=== PATIENT | male | born 1945 | race Caucasian/White ===

== ENCOUNTER 2021-01-23 11:04 | Emergency (ER) | payer MEDICARE ==
[2021-01-23] MEDS ORDERED: Lidocaine 1% with EPINEPHrine 1:100,000 10 ML MDV INJECT ONE (11:23)
--- NOTE | 2021-01-23 11:31 | EDM.PDOC ---
ED HPI GENERAL MEDICAL PROBLEM - General Chief Complaint: Laceration Stated Complaint: [facility] Time Seen by Provider: 01/23/21 11:16 Source of Information: Reports: Patient, RN Notes Reviewed History Limitations: Reports: No Limitations - History of Present Illness INITIAL COMMENTS - FREE TEXT/NARRATIVE: Patient is a 75-year-old male who presents to the ER for the evaluation of his head laceration. Patient was brought in by [facility]. Patient states that he has a history of Parkinson's, and ended up tripping over his own shoe at home, and he ended up falling onto the ground striking his forehead. This did result in about a 7 cm laceration that runs in a vertical fashion just to the right of the midline on the forehead. There is also a small 2 cm linear laceration to the left lateral eyebrow. He did not lose consciousness, he is not having any headache or tenderness around the area, he has had no blurred vision or double vision, no neurological deficits other than the visible Parkinson's. He presented to the [facility], but they did not have head CT purposes so they deferred him here for further management. Patient denies any sort of fevers or chills, cough or shortness of breath, nausea/vomiting/diarrhea. Patient is not on any medications, and he is not on any blood thinners. Forehead Pain Score (Numeric/FACES): 1 - Related Data Allergies Allergy/AdvReac Type Severity Reaction Status Date / Time Penicillins Allergy Severe Cannot Verified 01/23/21 11:14 Remember Home Meds: Home Meds . [No Known Home Meds] 01/23/21 [History] Past Medical History Neurological History: Reports: Parkinson's - Past Surgical History HEENT Surgical History: Reports: Tonsillectomy GI Surgical History: Reports: Colostomy, Other (See Below) Other GI Surgeries/Procedures: Right sided colorectal surgery Social & Family History - Tobacco Use Tobacco Use Status *Q: Never Tobacco User - Caffeine Use Caffeine Use: Reports: None - Recreational Drug Use Recreational Drug Use: No ED ROS GENERAL - Review of Systems Review Of Systems: Comprehensive ROS is negative, except as noted in HPI. ED EXAM, SKIN/RASH Exam: See Below Exam Limited By: No Limitations General Appearance: Alert, WD/WN, No Apparent Distress Eye Exam: Bilateral Eye: EOMI, Normal Inspection, PERRL Head: Normocephalic Neck: Normal Inspection, Supple, Non-Tender Respiratory/Chest: No Respiratory Distress, Lungs Clear, Normal Breath Sounds, No Accessory Muscle Use, Chest Non-Tender Cardiovascular: Normal Peripheral Pulses, Regular Rate, Rhythm, No Edema Peripheral Pulses: 2+: Radial (L), Radial (R) Neurological: Alert, Oriented, Normal Cognition, No Motor/Sensory Deficits Psychiatric: Normal Affect, Normal Mood Skin: Warm, Dry, Normal Color, No Rash, Wound/Incision (7cm linear deep laceration to the patient's forehead, just right of the midline-runs in vertical fashion; wound #2 on left lateral eyebrow 2 cm linear laceration) ED SKIN PROCEDURES - Laceration/Wound Repair Right Upper Midline Face Appearance: Subcutaneous, Linear, Clean Distal NVT: Neuro & Vascular Intact, No Tendon Injury Anesthetic Type: Local Local Anesthesia - Lidocaine (Xylocaine): 1% with EPI Local Anesthetic Volume: Other (6) Skin Prep: Chlorhexidine (Hibiciens), Saline Exploration/Debridement/Repair: Wound Explored, In a Bloodless Field, Explored to Base, No Foreign Material Found Closed with: Sutures Lac/Wound length In cm: 7 Suture Size: 4-0 # of Sutures: 13 Suture Type: Prolene, Interrupted, Simple Suture Size: 4-0 # of Sutures: 3 Repaired with: Vicryl Sterile Dressing Applied: Nurse Tetanus Status Addressed: Yes Complications: No Left Lateral Face Appearance: Superficial, Clean Distal NVT: Neuro & Vascular Intact Anesthetic Type: Local Local Anesthesia - Lidocaine (Xylocaine): 1% with EPI Local Anesthetic Volume: 2cc Skin Prep: Chlorhexidine (Hibiciens), Saline Exploration/Debridement/Repair: Wound Explored, In a Bloodless Field, Explored to Base, No Foreign Material Found Closed with: Sutures Lac/Wound length In cm: 2 Suture Size: 4-0 # of Sutures: 3 Suture Type: Prolene, Interrupted, Simple Sterile Dressing Applied: Nurse Tetanus Status Addressed: Yes Complications: No Course - Vital Signs Last Recorded V/S: Last Vital Signs Temp 98.1 F 01/23/21 11:10 Pulse 83 01/23/21 11:10 Resp 18 01/23/21 11:10 BP 139/117 H 01/23/21 11:10 Pulse Ox 98 01/23/21 11:10 - Orders/Labs/Meds Meds: Medications Discontinued Medications Generic Name Dose Route Start Last Admin Trade Name Betty PRN Reason Stop Dose Admin Lidocaine/Epinephrine 20 ml 01/23/21 11:23 01/23/21 11:32 Lidocaine 1% With Epinephrine 1:100,000 10 Ml Mdv INJECT 01/23/21 11:24 20 ml ONETIME ONE Administration - Re-Assessments/Exams Free Text/Narrative Re-Assessment/Exam: 01/23/21 11:40 Patient presents to the ER via [facility] for the evaluation of his head laceration, due to the extensive nature laceration, they did send him to the ER for head CT. This is been performed, and reviewed by myself and Dr. Kulkarni demonstrates no acute bleeds or other obvious fractures or abnormalities. The wound is deep enough, that it does look like it goes down to the skull however the patient's facial muscle function/sensation seems to be intact. 01/23/21 11:45 Official radiology read does demonstrate soft tissue injuries within the frontal scalp slightly to the right side with mild generalized atrophy but no other acute intracranial processes noted. Departure - Departure Time of Disposition: 11:31 Disposition: Home, Self-Care 01 Condition: Good Clinical Impression: Forehead laceration Qualifiers: Encounter type: initial encounter Qualified Code(s): S01.81XA - Laceration without foreign body of other part of head, initial encounter - Discharge Information *PRESCRIPTION DRUG MONITORING PROGRAM REVIEWED*: No *COPY OF PRESCRIPTION DRUG MONITORING REPORT IN PATIENT NAYELI: No Instructions: Sutures, [place], or Adhesive Wound Closure, [id number] Forms: ED Department Discharge Additional Instructions: You have been evaluated in the ED for your laceration. Sutures will need to stay in for 7 to 10 days. You may return to the ED or any clinic for removal. Please keep this area clean and dry, you may cleanse with regular soap and water. No vigorous scrubbing. Please try to avoid submerging the affected area in water for prolonged periods of time until the sutures are removed. Watch out for signs of infection like increased redness, swelling, pain at the laceration site, or if you should develop any fevers or chills. Your head CT demonstrated no acute fractures or any signs of bleeding. Please return to ED if your symptoms change or worsen. Sepsis Event Note (ED) - Evaluation Sepsis Screening Result: No Definite Risk - Focused Exam Vital Signs: Vital Signs Temp Pulse Resp BP Pulse Ox 01/23/21 11:10 98.1 F 83 18 139/117 H 98
--- NOTE | 2021-01-23 11:43 | CT ---
Head CT Technique: Multiple axial sections through the brain were obtained. Intravenous contrast was not utilized. Reconstructed coronal and sagittal images were obtained. Comparison: No prior intracranial imaging is available. Findings: Ventricles along with basal cisterns and sulci over the convexities are mildly prominent. No abnormal parenchymal densities are seen. No evidence of intracranial hemorrhage is seen. No midline shift or mass-effect is seen. Bone window settings were reviewed. Visualized mastoid sinuses and paranasal sinuses show nothing acute. No acute calvarial abnormality is seen. There are areas of soft tissue injuries being seen within the frontal right side of scalp. Impression: 1. Soft tissue injuries within the frontal scalp slightly to the right side. 2. Mild generalized atrophy. 3. No acute intracranial abnormality is appreciated. Diagnostic code #2
== END 2021-01-23 12:50 | disposition home or self-care (01) ==
LOC: JD.ED 11:04
DX: S01.81XA Laceration without foreign body of other part of head, initial encounter (principal); S01.112A Laceration without foreign body of left eyelid and periocular area, initial encounter; W01.198A Fall on same level from slipping, tripping and stumbling with subsequent striking against other object, initial encounter; Y92.009 Unspecified place in unspecified non-institutional (private) residence as the place of occurrence of the external cause
CPT/HCPCS: 12014; 12015; 70450; 70450-26; 99283; 99283-25

== ENCOUNTER 2021-02-20 16:10 | Emergency (ER) | payer MEDICARE ==
--- NOTE | 2021-02-20 16:28 | EDM.PDOC ---
ED HPI GENERAL MEDICAL PROBLEM - General Chief Complaint: Genitourinary Problem Stated Complaint: [facility]ENT [facility] Time Seen by Provider: 02/20/21 16:26 - History of Present Illness INITIAL COMMENTS - FREE TEXT/NARRATIVE: 75-year-old male presents with urinary difficulties. The patient is having difficulty voiding and some discomfort with voiding. He recently finished a 5-day course of Levaquin. But really is not much better. His bladder scan showed more than 900 cc here in the department. He has not had any recent fevers or chills. The patient has advanced Parkinson's disease he is not on medication for this and is otherwise doing ok. By history according to the daughter his last PSA was 33. His last biopsy was benign however. Bladder Pain Score (Numeric/FACES): 5 - Related Data Allergies Allergy/AdvReac Type Severity Reaction Status Date / Time Penicillins Allergy Unknown Cannot Verified 02/20/21 16:35 Remember Home Meds: Home Meds Tamsulosin [Flomax] 0.4 mg PO DAILY 02/20/21 [History] Past Medical History Neurological History: Reports: Parkinson's - Past Surgical History HEENT Surgical History: Reports: Tonsillectomy GI Surgical History: Reports: Colostomy, Other (See Below) Other GI Surgeries/Procedures: Right sided colorectal surgery Social & Family History - Caffeine Use Caffeine Use: Reports: None ED ROS GENERAL - Review of Systems Review Of Systems: See Below Constitutional: Reports: No Symptoms Respiratory: Reports: No Symptoms Cardiovascular: Reports: No Symptoms GI/Abdominal: Reports: Other (He has some lower abdominal distention). Denies: Constipation, Diarrhea, Nausea, Vomiting : Reports: Urinary Retention. Denies: Frequency, Urgency Musculoskeletal: Reports: No Symptoms Skin: Reports: No Symptoms Neurological: Reports: No Symptoms Psychiatric: Reports: No Symptoms ED EXAM, GENERAL - Physical Exam Exam: See Below Exam Limited By: No Limitations General Appearance: Alert, No Apparent Distress Head: Atraumatic, Normocephalic Neck: Normal Inspection, Supple, Non-Tender, Full Range of Motion Respiratory/Chest: No Respiratory Distress, Lungs Clear, Normal Breath Sounds Cardiovascular: Regular Rate, Rhythm, No Edema, No Murmur GI/Abdominal: Normal Bowel Sounds, Soft, Other (Some distention and discomfort in the lower abdomen) Course - Vital Signs Last Recorded V/S: Last Vital Signs Temp 36.6 C 08/20/21 16:25 Pulse 86 02/20/21 16:25 Resp 20 02/20/21 16:25 BP 160/99 H 02/20/21 16:25 Pulse Ox 97 02/20/21 16:25 - Orders/Labs/Meds Orders: Active Orders 24 hr Category Date Time Status Insert Lebron Catheter [Insert Urinary Catheter] [OM.PC] Care 02/20/21 16:45 Ordered Q24H Urinary Catheter Assessment [RC] ASDIRECTED Care 02/20/21 16:46 Active Labs: Laboratory Tests 02/20/21 Range/Units 16:40 Urine Color Yellow (Yellow) Urine Appearance Clear (Clear) Urine pH 7.0 (5.0-8.0) Ur Specific [place] 1.020 (1.005-1.030) Urine Protein Negative (Negative) Urine Glucose (UA) Negative (Negative) Urine Ketones Negative (Negative) Urine Occult Blood 1+ H (Negative) Urine Nitrite Negative (Negative) Urine Bilirubin Negative (Negative) Urine Urobilinogen 0.2 (0.2-1.0) Ur Leukocyte Esterase Negative (Negative) Urine RBC 5-10 H (0-5) /hpf Urine WBC 0-5 (0-5) /hpf Ur Squamous Epith Cells 0-5 (0-5) /hpf Urine Bacteria Few (FEW) /hpf Urine Mucus Not seen (FEW) /hpf - Re-Assessments/Exams Free Text/Narrative Re-Assessment/Exam: 02/20/21 17:28 Patient had a Lebron placed urinalysis is not suggestive of infectious process. He is drained out roughly 1500 cc and immediately after the Lebron was placed the patient was much better he is no longer in pain. At this time we will go ahead and discharge him. Discussed prostate medications with the daughter however, without knowing his past medical history, his PSA going up I do not believe it is best to start him on anything at this time. Departure - Departure Time of Disposition: 17:29 Disposition: Home, Self-Care 01 Clinical Impression: Retention of urine - Discharge Information Referrals: Ruth Miles PA-C [Primary Care Provider] - Forms: ED Department Discharge Additional Instructions: Return to the emergency room with any questions problems or worsening symptoms. Follow-up in the clinic early this next week. The catheter should stay in place at least 5 days may be longer. Discuss possible medical management for the urinary retention. Try and get in with urology sooner tell them he needed a Lebron catheter placed. Sepsis Event Note (ED) - Focused Exam Vital Signs: Vital Signs Temp Pulse Resp BP Pulse Ox 02/20/21 16:25 36.6 C 86 20 160/99 H 97 - My Orders Last 24 Hours: My Active Orders 02/20/21 16:45 Insert Lebron Catheter [Insert Urinary Catheter] [OM.PC] Q24H 02/20/21 16:46 Urinary Catheter Assessment [RC] ASDIRECTED - Assessment/Plan Last 24 Hours: My Active Orders 02/20/21 16:45 Insert Lebron Catheter [Insert Urinary Catheter] [OM.PC] Q24H 02/20/21 16:46 Urinary Catheter Assessment [RC] ASDIRECTED
== END 2021-02-20 18:17 | disposition home or self-care (01) ==
LOC: JD.ED 16:10
DX: R33.9 Retention of urine, unspecified (principal); Z88.0 Allergy status to penicillin
CPT/HCPCS: 51702; 81001; 99282; 99284-25

== ENCOUNTER 2021-03-27 12:27 | Emergency (ER) | payer MEDICARE ==
--- NOTE | 2021-03-27 14:32 | EDM.PDOC ---
ED HPI GENERAL MEDICAL PROBLEM - General Chief Complaint: Genitourinary Problem Stated Complaint: BLOOD IN URINE/HAS CATHETER Time Seen by Provider: 03/27/21 13:22 Source of Information: Reports: Patient, RN Notes Reviewed History Limitations: Reports: No Limitations - History of Present Illness INITIAL COMMENTS - FREE TEXT/NARRATIVE: Patient is a 75-year-old male presenting to the emergency department with complaints of blood in his urine. He has had a chronic indwelling Lebron for the last 6 weeks. It was last changed on Tuesday. He has not had any trauma to the catheter that he can recall. Denies any back pain or suprapubic pain. He has had no fever, chills, nausea, or vomiting. His urologist is Dr. Burns and he is scheduled to see him again on Tuesday. - Related Data Allergies Allergy/AdvReac Type Severity Reaction Status Date / Time Penicillins Allergy Unknown Cannot Verified 03/27/21 13:13 Remember Home Meds: Home Meds . [No Known Home Meds] 03/27/21 [History] Past Medical History Genitourinary History: Reports: Retention, Urinary, Other (See Below) Other Genitourinary History: chronic catheter Neurological History: Reports: Parkinson's - Infectious Disease History Infectious Disease History: Reports: Chicken Pox - Past Surgical History HEENT Surgical History: Reports: Tonsillectomy GI Surgical History: Reports: Colostomy, Other (See Below) Other GI Surgeries/Procedures: Right sided colorectal surgery Social & Family History - Family History Family Medical History: No Pertinent Family History - Tobacco Use Tobacco Use Status *Q: Former Tobacco User Used Tobacco, but Quit: Yes Month/Year Tobacco Last Used: 03/04/1970 - Caffeine Use Caffeine Use: Reports: None - Recreational Drug Use Recreational Drug Use: No ED ROS GENERAL - Review of Systems Review Of Systems: Comprehensive ROS is negative, except as noted in HPI. ED EXAM, RENAL/ - Physical Exam Exam: See Below Exam Limited By: No Limitations General Appearance: Alert, WD/WN, No Apparent Distress Respiratory/Chest: No Respiratory Distress, Lungs Clear, Normal Breath Sounds, No Accessory Muscle Use, Chest Non-Tender Cardiovascular: Normal Peripheral Pulses, Regular Rate, Rhythm, No Edema, No Gallop, No JVD, No Murmur, No Rub GI/Abdominal: Normal Bowel Sounds, Soft, Non-Tender, No Organomegaly, No Distention, No Abnormal Bruit, No Mass (Male) Exam: Other (Indwelling Lebron.) Neurological: Alert, Oriented, CN II-XII Intact, Normal Cognition, Normal Gait, Other (Tremor) Psychiatric: Normal Affect, Normal Mood Skin Exam: Warm, Dry, Intact, Normal Color, No Rash Course - Vital Signs Last Recorded V/S: Last Vital Signs Temp 98.0 F 03/27/21 13:11 Pulse 60 03/27/21 13:11 Resp 20 03/27/21 13:11 BP 124/85 03/27/21 13:11 Pulse Ox 93 L 03/27/21 13:11 - Orders/Labs/Meds Labs: Laboratory Tests 03/27/21 03/27/21 03/27/21 Range/Units 13:25 14:13 14:13 WBC 5.30 (4.23-9.07) K/mm3 RBC 3.94 L (4.63-6.08) M/mm3 Hgb 10.8 L D (13.7-17.5) gm/dl Hct 34.7 L (40.1-51.0) % MCV 88.1 (79.0-92.2) fl MCH 27.4 (25.7-32.2) pg MCHC 31.1 L (32.2-35.5) g/dl RDW Std Deviation 42.8 (35.1-43.9) fL Plt Count 264 (163-337) K/mm3 MPV 8.3 L (9.4-12.3) fl Neut % (Auto) 67.8 (34.0-67.9) % Lymph % (Auto) 20.2 L (21.8-53.1) % [place] % (Auto) 10.9 (5.3-12.2) % Eos % (Auto) 0.9 (0.8-7.0) Baso % (Auto) 0.2 (0.1-1.2) % Neut # (Auto) 3.59 (1.78-5.38) K/mm3 Lymph # (Auto) 1.07 L (1.32-3.57) K/mm3 [place] # (Auto) 0.58 (0.30-0.82) K/mm3 Eos # (Auto) 0.05 (0.04-0.54) K/mm3 Baso # (Auto) 0.01 (0.01-0.08) K/mm3 Sodium 135 L (136-145) mEq/L Potassium 4.0 (3.5-5.1) mEq/L Chloride 98 (98-107) mEq/L Carbon Dioxide 30 (21-32) mEq/L Anion Gap 11.0 (5-15) BUN 13 (7-18) mg/dL Creatinine 0.8 (0.7-1.3) mg/dL Est Cr Clr Drug Dosing 73.58 mL/min Estimated GFR (MDRD) > 60 (>60) mL/min BUN/Creatinine Ratio 16.3 (14-18) Glucose 87 (70-99) mg/dL Calcium 8.9 (8.5-10.1) mg/dL Total Bilirubin 0.6 (0.2-1.0) mg/dL AST 16 (15-37) U/L ALT 16 (16-63) U/L Alkaline Phosphatase 62 (46-116) U/L Total Protein 6.3 L (6.4-8.2) g/dl Albumin 3.4 (3.4-5.0) g/dl Globulin 2.9 gm/dL Albumin/Globulin Ratio 1.2 (1-2) Urine Color [place] H (Yellow) Urine Appearance Cloudy H (Clear) Urine pH 8.5 H (5.0-8.0) Ur Specific [place] 1.020 (1.005-1.030) Urine Protein 2+ H (Negative) Urine Glucose (UA) Negative (Negative) Urine Ketones Negative (Negative) Urine Occult Blood 3+ H (Negative) Urine Nitrite Negative (Negative) Urine Bilirubin Negative (Negative) Urine Urobilinogen 0.2 (0.2-1.0) Ur Leukocyte Esterase Negative (Negative) Urine RBC Too numerous to cnt H (0-5) /hpf Urine WBC 0-5 (0-5) /hpf Ur Squamous Epith Cells 0-5 (0-5) /hpf Urine Bacteria Few (FEW) /hpf Urine Mucus Not seen (FEW) /hpf - Re-Assessments/Exams Free Text/Narrative Re-Assessment/Exam: Patient is a 75-year-old male presenting to the emergency department for evaluation of blood in his urine. He has had a chronic indwelling Lebron catheter for the last 6 weeks. He had it changed on Tuesday. Reports onset of bleeding this morning. He described dark urine with a very small clot. He has no back or suprapubic pain. He has had no fever, chills, nausea, or vomiting. Urine sample collected on triage did show dark urine with obvious blood. The time of my exam, his urine had cleared up. There is no blood noted in his leg bag. Exam is unremarkable. I ordered urinalysis and blood work. 03/27/21 14:51 Hematology significant for hemoglobin slightly low at 10.8. Otherwise unremarkable. Urinalysis shows 3+ occult blood and RBCs too numerous to count but no evidence of infection. Urine continues to be clear at this time. We will discharge him home with instructions to follow-up with urology. Discussed return precautions. Discharge instructions as documented. Departure - Departure Time of Disposition: 14:51 Disposition: Home, Self-Care 01 Condition: Good Clinical Impression: Hematuria Qualifiers: Hematuria type: unspecified type Qualified Code(s): R31.9 - Hematuria, unspecified - Discharge Information *PRESCRIPTION DRUG MONITORING PROGRAM REVIEWED*: No *COPY OF PRESCRIPTION DRUG MONITORING REPORT IN PATIENT NAYELI: No Instructions: Indwelling Urinary Catheter Care, Adult Referrals: Jhony Burns MD [Ordering Only Provider] - Forms: ED Department Discharge Additional Instructions: You were seen in the emergency department today for evaluation of blood in your urine. Work-up included blood work and urinalysis. Blood work was found to be normal. Urinalysis did show evidence of blood but there is no infection in your urine. By the time you left the ER, your urine had cleared up. As we discussed, it is common to see blood in your urine at times when you have a catheter. If you would be experiencing large amount of blood in your urine or large clots which can obstruct the catheter, please return to the emergency department. Otherwise I would recommend follow-up with your urologist as scheduled on Tuesday. Sepsis Event Note (ED) - Focused Exam Vital Signs: Vital Signs Temp Pulse Resp BP Pulse Ox 03/27/21 13:11 98.0 F 60 20 124/85 93 L
== END 2021-03-27 15:10 | disposition home or self-care (01) ==
LOC: JD.ED 12:27
DX: R31.9 Hematuria, unspecified (principal); Z88.0 Allergy status to penicillin; Z87.891 Personal history of nicotine dependence
CPT/HCPCS: 36415; 80053; 81001; 85025; 99283

== ENCOUNTER 2022-04-04 00:20 | Inpatient (IN) | payer MEDICARE ==
[2022-04-04] MEDS ORDERED: Lactated Ringers 1,000 ML IV ONE (01:07)
[2022-04-04] MEDS ORDERED: Lactated Ringers 1,000 ML IV SCH (01:15)
[2022-04-04] MEDS: Lactated Ringers 1,000 ML IV ONE ×2 (01:50→02:09)
[2022-04-04] MEDS ORDERED: Meropenem 2 GM in Sodium Chloride 0.9% 100 ML IV ONE (02:17)
[2022-04-04] MEDS ORDERED: VANCOmycin 1.25 GM/250 ML 1.25 GM in Premix Bag 1 BAG IV ONE (02:30)
[2022-04-04] MEDS ORDERED: Ondansetron 4 MG/2 ML SDV IV PRN (08:46)
[2022-04-04] MEDS ORDERED: oxyCODONE 5 MG Tab PO PRN (08:46)
[2022-04-04] MEDS ORDERED: Heparin Sodium 5,000 Units/ML Vial SUBCUT SCH (09:00)
[2022-04-04] MEDS: Meropenem 500 MG in Sodium Chloride 0.9% 100 ML IV SCH ×3 (09:26→22:23)
[2022-04-04] MEDS: Sodium Chloride 0.9% 1,000 ML IV SCH ×2 (09:27→19:23)
[2022-04-04] MEDS ORDERED: Meropenem 1 GM in Sodium Chloride 0.9% 100 ML IV SCH (10:30)
[2022-04-04] MEDS ORDERED: LORazepam 2 MG/ML SDV IM PRN (11:21)
[2022-04-04] MEDS ORDERED: Atropine 0.4 MG/ML SDV PRN (11:21)
[2022-04-05] MEDS ORDERED: Meropenem 500 MG in Sodium Chloride 0.9% 100 ML IV ONE (03:15)
[2022-04-05] MEDS ORDERED: VANCOmycin 1.5 GM/300 ML 1.5 GM in Premix Bag 1 BAG IV SCH (04:00)
[2022-04-05] MEDS ORDERED: VANCOmycin 1.25 GM/250 ML 1.25 GM in Premix Bag 1 BAG IV SCH (04:00)
== END 2022-04-05 17:40 | disposition still patient (30) | DRG 872 ==
LOC: JD.ED 00:20 → JD.MS 07:25 → JD.ZCENSUS 04-05 12:32
PROVIDERS: ADMIT Hospitalist; ATTEND Hospitalist
DX: A41.9 Sepsis, unspecified organism (principal); T83.89XA Other specified complication of genitourinary prosthetic devices, implants and grafts, initial encounter; E87.1 Hypo-osmolality and hyponatremia; T83.090A Other mechanical complication of cystostomy catheter, initial encounter; Z66 Do not resuscitate; Z51.5 Encounter for palliative care; D63.8 Anemia in other chronic diseases classified elsewhere; R33.9 Retention of urine, unspecified; Z20.822 Contact with and (suspected) exposure to COVID-19; R65.20 Severe sepsis without septic shock; Z88.8 Allergy status to other drugs, medicaments and biological substances; G20 Parkinson's disease; Z95.9 Presence of cardiac and vascular implant and graft, unspecified; Z88.0 Allergy status to penicillin; Z85.46 Personal history of malignant neoplasm of prostate; Z88.6 Allergy status to analgesic agent; Z88.2 Allergy status to sulfonamides; Z88.1 Allergy status to other antibiotic agents; Z93.6 Other artificial openings of urinary tract status; Z79.899 Other long term (current) drug therapy
CPT/HCPCS: 36415; 51705; 71045; 80053; 81001; 83605; 84484; 85025; 85610; 87040 ×2; 87077; 87086; 87186; 96361; 96365; 96367; 99285; J2185; J3370; J7120 ×3; U0002; 80202; 97110-GP; 97162-GP; 99222; 99238; 99284; J1644; J7030

== ENCOUNTER 2022-05-03 03:11 | Emergency (ER) | payer MEDICARE | END 2022-05-03 03:32 | disposition home or self-care (01) | LOC: JD.ED 03:11 | DX: T83.090A Other mechanical complication of cystostomy catheter, initial encounter (principal); Z88.0 Allergy status to penicillin; Z88.6 Allergy status to analgesic agent; Z88.1 Allergy status to other antibiotic agents; Z88.8 Allergy status to other drugs, medicaments and biological substances; Z88.2 Allergy status to sulfonamides | CPT/HCPCS: 51705; 99283 ==